=== PATIENT | male | born 1955 | race Two or more races ===

== ENCOUNTER → 2020-03-19 | Outpatient (CLI) | payer MEDICARE, BC ==
--- NOTE | 2020-03-19 17:31 | RAD ---
Chest radiograph 03/19/2020 11:34 AM INDICATION: Asthma COMPARISON: CT chest 01/29/2009 TECHNIQUE: Frontal and lateral views of the chest are provided. FINDINGS: The cardiomediastinal silhouette is within normal limits. There are no pleural effusions. There is no pulmonary vascular congestion. There is no pneumothorax. Suspect mild pulmonary emphysema. Lungs are otherwise clear. Osseous fusion of the anterior ribs identified involving the anterior second, third, fourth, fifth an d sixth ribs. IMPRESSION: COPD changes without acute cardiopulmonary process. Electronically signed by: Madison Umanzor MD (03/19/2020 5:29 PM) [id number]
== END ==
LOC: RAD 11:08
PROVIDERS: ATTEND Internal Medicine Pulmonary Disease
DX: J43.9 Emphysema, unspecified (principal)
CPT/HCPCS: 71046